=== PATIENT | male | born 1955 | race African-American/Black ===

== ENCOUNTER 2018-01-25 04:26 | Inpatient (IN) | payer OTHER ==
[2018-01-25] VITALS (7 sets, daily range): BP systolic 130–170; BP diastolic 78–100
[~2018-01-25] VITALS: Ht 172.7 cm; Wt 76.2 kg
[2018-01-25] MEDS ORDERED: MORPHINE SULFATE 4 MG/ML CPJ (NOT FOR IM USE) IV STA (04:56)
[2018-01-25] MEDS ORDERED: ONDANSETRON HCL 4MG/2ML INJ IV STA (04:56)
[2018-01-25 05:23] LABS: HEMOGLOBIN. 13.4 g/dL (14.0-18.0); MEAN CORPUSCULAR HEMOGLOBIN 29.7 pg (28.0-32.0); MEAN CORPUSCULAR VOLUME 88.7 fL (80.0-94.0); MEAN PLATELET VOLUME 8.1 fl (7.4-10.4); PLATELET 282 x1000/uL (130-400); RED BLOOD CELL COUNT 4.51 mill/uL (4.7-6.1); RED CELL DISTRIBUTION WIDTH 13.7 % (11.6-14.6)
[2018-01-25 05:27] LABS: CHLORIDE 106 mEq/L (98-107); PROTHROMBIN TIME 9.7 sec (9.1-11.1)
[2018-01-25 05:32] LABS: ETHANOL BLOOD < 10 mg/dL
[2018-01-25 05:34] LABS: LDL CHOLESTEROL 118 mg/dL (5-100)
[2018-01-25 05:36] LABS: CREATINE KINASE 817 IU/L (39-308)
[2018-01-25] MEDS ORDERED: IOHEXOL-350 100 ML BOTTLE ONE (05:52)
[2018-01-25] MEDS ORDERED: SODIUM CHLORIDE 0.9% 1,000 ML IV SCH (06:02)
[2018-01-25 06:39] LABS: CLARITY URINE CLEAR (CLEAR); COLOR URINE YELLOW (YELLOW); KETONES URINE NEGATIVE (NEGATIVE); LEUKOCYTE ESTERASE URINE NEGATIVE (NEGATIVE); NITRITE URINE NEGATIVE (NEGATIVE); OCCULT BLOOD URINE NEGATIVE (NEGATIVE); PROTEIN URINE NEGATIVE (NEGATIVE); SPECIFIC GRAVITY URINE 1.037 (1.005-1.030); UROBILINOGEN URINE 0.2 E.U./dL (0.2-1.0)
[2018-01-25 07:08] LABS: PLATELET ESTIMATE NORMAL
[2018-01-25 07:10] LABS: *AMPHETAMINES SCREEN URINE NEGATIVE (NEGATIVE); *BARBITURATES SCREEN URINE NEGATIVE (NEGATIVE); *BENZODIAZEPINES SCREEN URINE NEGATIVE (NEGATIVE)
[2018-01-25 07:11] LABS: *COCAINE SCREEN URINE NEGATIVE (NEGATIVE); CANNABINOID URINE SCREEN PRESUMTIVE POSITIVE (NEGATIVE); METHADONE URINE SCREEN NEGATIVE (NEGATIVE); OPIATES URINE SCREEN PRESUMTIVE POSITIVE (NEGATIVE); PHENCYCLIDINE URINE SCREEN NEGATIVE (NEGATIVE)
[2018-01-25 08:10] LABS: T4 FREE 0.97 ng/dL (0.76-1.46)
[2018-01-25] MEDS ORDERED: ONDANSETRON HCL 4MG/2ML INJ IV PRN (08:18)
[2018-01-25] MEDS: ASPIRIN 81MG EC TABLET PO SCH (12:30)
[2018-01-25] MEDS: ENOXAPARIN 40MG/0.4ML SYR SUBCUT SCH (13:14)
[2018-01-25] MEDS ORDERED: INFLUENZA VIRUS VACCINE 0.5ML SYR IM ONE (15:15)
[2018-01-25] MEDS ORDERED: PNEUMOCOCCAL 23-VAL P-SAC VAC 0.5 ML IM ONE (15:15)
[2018-01-25 16:45] LABS: CREATINE KINASE 570 IU/L (39-308)
[2018-01-25 16:46] LABS: CREATINE KINASE MB FRACTION 1.3 ng/mL (0.5-3.6)
[2018-01-25] MEDS: ATORVASTATIN CALCIUM 20MG TABLET PO SCH (21:00)
[2018-01-26] VITALS (12 sets, daily range): BP systolic 128–192; BP diastolic 85–114
[2018-01-26 01:07] LABS: CREATINE KINASE 416 IU/L (39-308)
[2018-01-26 01:08] LABS: CREATINE KINASE MB FRACTION 1.1 ng/mL (0.5-3.6)
[2018-01-26 07:04] LABS: CREATINE KINASE 340 IU/L (39-308)
[2018-01-26 07:05] LABS: CREATINE KINASE MB FRACTION < 1.0 ng/mL (0.5-3.6)
[2018-01-26] MEDS: ASPIRIN 81MG EC TABLET PO SCH (08:26)
[2018-01-26] MEDS: ENOXAPARIN 40MG/0.4ML SYR SUBCUT SCH (08:26)
[2018-01-26] MEDS: ATORVASTATIN CALCIUM 20MG TABLET PO SCH (21:17)
[2018-01-27] VITALS (10 sets, daily range): BP systolic 104–163; BP diastolic 67–107
[2018-01-27] MEDS: ENOXAPARIN 40MG/0.4ML SYR SUBCUT SCH (08:44)
[2018-01-27] MEDS: ASPIRIN 81MG EC TABLET PO SCH (08:44)
[2018-01-27 09:49] LABS: BASOPHILS % 0.8 % (0.0-2.0); EOSINOPHILS % 2.4 % (0.0-5.0); HEMATOCRIT. 44.2 % (42.0-52.0); HEMOGLOBIN. 15.1 g/dL (14.0-18.0); LYMPHOCYTES % 23.9 % (20.0-50.0); MEAN CORPUSCULAR HEMOGLOBIN 29.9 pg (28.0-32.0); MEAN CORPUSCULAR VOLUME 87.4 fL (80.0-94.0); MEAN PLATELET VOLUME 7.9 fl (7.4-10.4); MONOCYTES % 14.1 % (2.0-8.0); NEUTROPHILS % 58.8 % (40.0-76.0); PLATELET 377 x1000/uL (130-400); RED BLOOD CELL COUNT 5.05 mill/uL (4.7-6.1); RED CELL DISTRIBUTION WIDTH 13.7 % (11.6-14.6)
[2018-01-27 10:06] LABS: CHLORIDE 103 mEq/L (98-107)
[2018-01-27] MEDS ORDERED: DEXT 5%/0.9% NACL 1,000 ML IV SCH (16:45)
[2018-01-27] MEDS: DEXT 5%/0.9% NACL 1,000 ML IV SCH (17:00)
[2018-01-27] MEDS: ATORVASTATIN CALCIUM 20MG TABLET PO SCH (20:24)
[2018-01-28] VITALS (12 sets, daily range): BP systolic 111–158; BP diastolic 79–117
[2018-01-28] MEDS: ENOXAPARIN 40MG/0.4ML SYR SUBCUT SCH (08:30)
[2018-01-28] MEDS: ASPIRIN 81MG EC TABLET PO SCH (08:30)
[2018-01-28] MEDS: DEXT 5%/0.9% NACL 1,000 ML IV SCH (13:00)
[2018-01-28] MEDS: ATORVASTATIN CALCIUM 20MG TABLET PO SCH (21:20)
[2018-01-29] VITALS (12 sets, daily range): BP systolic 121–160; BP diastolic 55–95
[2018-01-29] MEDS: ASPIRIN 81MG TABLET PO SCH (08:59)
[2018-01-29] MEDS: ENOXAPARIN 40MG/0.4ML SYR SUBCUT SCH (09:07)
[2018-01-29] MEDS: DEXT 5%/0.9% NACL 1,000 ML IV SCH (13:47)
[2018-01-29] MEDS: ATORVASTATIN CALCIUM 20MG TABLET PO SCH (20:19)
[2018-01-30] VITALS (10 sets, daily range): BP systolic 106–153; BP diastolic 70–89
[2018-01-30] MEDS: DEXT 5%/0.9% NACL 1,000 ML IV SCH (05:00)
[2018-01-30] MEDS: ASPIRIN 81MG TABLET PO SCH (08:44)
[2018-01-30] MEDS: ENOXAPARIN 40MG/0.4ML SYR SUBCUT SCH (08:44)
[2018-01-30] MEDS: PANTOPRAZOLE SODIUM 40 MG/VIAL IV SCH ×2 (10:15→20:17)
[2018-01-30] MEDS ORDERED: CEFAZOLIN 1000MG PREMIX 50 ML IV NR (11:00)
[2018-01-30 12:02] LABS: BASOPHILS % 1.3 % (0.0-2.0); EOSINOPHILS % 5.8 % (0.0-5.0); HEMATOCRIT. 45.9 % (42.0-52.0); HEMOGLOBIN. 15.7 g/dL (14.0-18.0); LYMPHOCYTES % 33.9 % (20.0-50.0); MEAN CORPUSCULAR VOLUME 87.8 fL (80.0-94.0); MEAN PLATELET VOLUME 7.7 fl (7.4-10.4); MONOCYTES % 13.1 % (2.0-8.0); NEUTROPHILS % 45.9 % (40.0-76.0); PLATELET 402 x1000/uL (130-400); RED BLOOD CELL COUNT 5.23 mill/uL (4.7-6.1); RED CELL DISTRIBUTION WIDTH 13.3 % (11.6-14.6)
[2018-01-30 12:03] LABS: INR 1.1; PARTIAL THROMBOPLASTIN TIME 27.7 sec (23.4-31.0); PROTHROMBIN TIME 10.9 sec (9.1-11.1)
[2018-01-30 12:49] LABS: CHLORIDE 105 mEq/L (98-107)
[2018-01-30] MEDS ORDERED: SODIUM CHLORIDE 0.9% 10ML VIAL ONE (15:15)
[2018-01-30] MEDS ORDERED: MIDAZOLAM HCL 5 MG/5 ML VIAL IV PRN (17:15)
[2018-01-30] MEDS ORDERED: FENTANYL CITRATE/PF 50MCG/ML 2ML VIAL IV PRN (17:16)
[2018-01-30] MEDS ORDERED: FENTANYL CITRATE/PF 50MCG/ML 2ML VIAL ONE (17:17)
[2018-01-30] MEDS ORDERED: MIDAZOLAM HCL 5 MG/5 ML VIAL ONE (17:17)
[2018-01-30] MEDS: ATORVASTATIN CALCIUM 20MG TABLET PO SCH (20:18)
[2018-01-31] VITALS (10 sets, daily range): BP systolic 119–148; BP diastolic 69–99
[2018-01-31] MEDS: DEXT 5%/0.9% NACL 1,000 ML IV SCH (01:00)
[2018-01-31] MEDS: PANTOPRAZOLE SODIUM 40 MG/VIAL IV SCH (08:15)
[2018-01-31] MEDS ORDERED: BRIM5DRO6 EACHEYE (08:58)
[2018-01-31] MEDS ORDERED: ASPIRIN 81MG TABLET PO SCH (09:45)
[2018-01-31] MEDS ORDERED: MEDICATION NOT ON FORMULARY EA (Brimonidine Tartrate 1 DROP) EACHEYE SCH (09:45)
[2018-01-31] MEDS: BRIMONIDINE 0.2% OPHTH DROPS 5ML EACHEYE SCH ×2 (14:41→21:05)
[2018-01-31] MEDS: ATORVASTATIN CALCIUM 20MG TABLET PO SCH (21:05)
[2018-02-01] VITALS: BP 127/77
[2018-02-01 04:00] VITALS: BP 130/70
[2018-02-01] MEDS: BRIMONIDINE 0.2% OPHTH DROPS 5ML EACHEYE SCH ×3 (05:14→21:24)
[2018-02-01 08:00] VITALS: BP 116/79
[2018-02-01] MEDS: PANTOPRAZOLE SODIUM 40 MG/VIAL IV SCH (09:26)
[2018-02-01] MEDS: ASPIRIN 81MG TABLET PO SCH (09:31)
[2018-02-01 12:00] VITALS: BP 140/88
[2018-02-01 16:00] VITALS: BP 131/90
[2018-02-01 19:58] VITALS: BP 121/82
[2018-02-01] MEDS: ATORVASTATIN CALCIUM 20MG TABLET PO SCH (21:24)
[2018-02-01] MEDS: CHLORPROMAZINE HCL 10 MG TABLET PO PRN (21:56)
[2018-02-02] VITALS (8 sets, daily range): BP systolic 111–131; BP diastolic 79–88
[2018-02-02] MEDS: CHLORPROMAZINE HCL 10 MG TABLET PO PRN ×3 (05:43→21:01)
[2018-02-02] MEDS: BRIMONIDINE 0.2% OPHTH DROPS 5ML EACHEYE SCH ×3 (05:43→21:01)
[2018-02-02] MEDS: PANTOPRAZOLE SODIUM 40 MG/VIAL IV SCH (08:33)
[2018-02-02] MEDS: ASPIRIN 81MG TABLET PO SCH (08:33)
[2018-02-02] MEDS: ATORVASTATIN CALCIUM 20MG TABLET PO SCH (21:01)
[2018-02-02] MEDS: CYCLOBENZAPRINE 10MG TABLET PO SCH (21:01)
[2018-02-03 04:00] VITALS: BP 119/81
[2018-02-03] MEDS: BRIMONIDINE 0.2% OPHTH DROPS 5ML EACHEYE SCH ×3 (05:21→21:11)
[2018-02-03] MEDS: CHLORPROMAZINE HCL 10 MG TABLET PO PRN ×2 (05:21→14:32)
[2018-02-03] MEDS: CYCLOBENZAPRINE 10MG TABLET PO SCH ×3 (05:22→21:10)
[2018-02-03 08:00] VITALS: BP 130/78
[2018-02-03] MEDS: PANTOPRAZOLE SODIUM 40 MG/VIAL IV SCH (10:25)
[2018-02-03] MEDS: ASPIRIN 81MG TABLET PO SCH (10:25)
[2018-02-03 12:00] VITALS: BP 128/78
[2018-02-03 16:00] VITALS: BP 115/77
[2018-02-03 20:00] VITALS: BP 108/84
[2018-02-03] MEDS: CHLORPROMAZINE HCL 10 MG TABLET PO SCH (21:10)
[2018-02-03] MEDS: ATORVASTATIN CALCIUM 20MG TABLET PO SCH (21:10)
[2018-02-04] VITALS: BP 119/78
[2018-02-04] MEDS: CHLORPROMAZINE HCL 10 MG TABLET PO SCH ×4 (03:36→20:10)
[2018-02-04 04:00] VITALS: BP 112/78
[2018-02-04] MEDS: CYCLOBENZAPRINE 10MG TABLET PO SCH ×3 (05:40→20:10)
[2018-02-04] MEDS: BRIMONIDINE 0.2% OPHTH DROPS 5ML EACHEYE SCH ×3 (05:40→20:16)
[2018-02-04 07:20] VITALS: BP 114/76
[2018-02-04] MEDS ORDERED: CYCL10TA7 PO (08:33)
[2018-02-04] MEDS ORDERED: CHLO10TA9 PO (08:33)
[2018-02-04] MEDS ORDERED: BRIM.2 EACHEYE (08:33)
[2018-02-04] MEDS ORDERED: LOV40 SUBCUT (08:33)
[2018-02-04] MEDS ORDERED: PANT40VI IV (08:33)
[2018-02-04] MEDS ORDERED: ASPI-1160 PO (08:33)
[2018-02-04] MEDS ORDERED: ATOR20TA PO (08:33)
[2018-02-04] MEDS ORDERED: BARIUM SULFATE 176 GM SUSP.RECON ONE (09:39)
[2018-02-04] MEDS: PANTOPRAZOLE SODIUM 40 MG/VIAL IV SCH (10:20)
[2018-02-04] MEDS: ASPIRIN 81MG TABLET PO SCH (10:20)
[2018-02-04] MEDS: ENOXAPARIN 40MG/0.4ML SYR SUBCUT SCH (10:26)
[2018-02-04 11:03] VITALS: BP 115/81
[2018-02-04 15:36] VITALS: BP 110/78
[2018-02-04 19:55] VITALS: BP 135/92
[2018-02-04] MEDS: ATORVASTATIN CALCIUM 20MG TABLET PO SCH (20:09)
[2018-02-05] VITALS (7 sets, daily range): BP systolic 105–125; BP diastolic 73–85
[2018-02-05] MEDS: CYCLOBENZAPRINE 10MG TABLET PO SCH ×3 (05:35→21:38)
[2018-02-05] MEDS: CHLORPROMAZINE HCL 25 MG TABLET PO SCH ×3 (05:36→21:38)
[2018-02-05] MEDS: BRIMONIDINE 0.2% OPHTH DROPS 5ML EACHEYE SCH ×3 (05:37→21:38)
[2018-02-05] MEDS: PANTOPRAZOLE SODIUM 40 MG/VIAL IV SCH (08:48)
[2018-02-05] MEDS: ENOXAPARIN 40MG/0.4ML SYR SUBCUT SCH (08:49)
[2018-02-05] MEDS: ASPIRIN 81MG TABLET PO SCH (08:49)
[2018-02-05] MEDS: ATORVASTATIN CALCIUM 20MG TABLET PO SCH (21:38)
[2018-02-06] VITALS: BP 128/81
[2018-02-06 04:00] VITALS: BP 120/84
[2018-02-06] MEDS: CHLORPROMAZINE HCL 25 MG TABLET PO SCH (05:56)
[2018-02-06] MEDS: CYCLOBENZAPRINE 10MG TABLET PO SCH (05:56)
[2018-02-06] MEDS: BRIMONIDINE 0.2% OPHTH DROPS 5ML EACHEYE SCH (05:56)
[2018-02-06 06:57] LABS: BASOPHILS % 0.7 % (0.0-2.0); HEMATOCRIT. 39.4 % (42.0-52.0); HEMOGLOBIN. 13.4 g/dL (14.0-18.0); LYMPHOCYTES % 35.1 % (20.0-50.0); MEAN CORPUSCULAR HEMOGLOBIN 29.8 pg (28.0-32.0); MEAN CORPUSCULAR VOLUME 87.3 fL (80.0-94.0); MEAN PLATELET VOLUME 8.2 fl (7.4-10.4); MONOCYTES % 10.5 % (2.0-8.0); NEUTROPHILS % 44.7 % (40.0-76.0); PLATELET 385 x1000/uL (130-400); RED BLOOD CELL COUNT 4.51 mill/uL (4.7-6.1); RED CELL DISTRIBUTION WIDTH 13.1 % (11.6-14.6)
[2018-02-06 06:58] LABS: CHLORIDE 102 mEq/L (98-107)
[2018-02-06] MEDS: ENOXAPARIN 40MG/0.4ML SYR SUBCUT SCH (08:28)
[2018-02-06] MEDS: PANTOPRAZOLE SODIUM 40 MG/VIAL IV SCH (08:29)
[2018-02-06] MEDS: ASPIRIN 81MG TABLET PO SCH (08:29)
[2018-02-06 11:31] VITALS: BP 99/73
== END 2018-02-06 12:22 | disposition short-term general hospital (02) | DRG 65 ==
LOC: ER 04:26 → 3WST 06:05 → EDBEDREQTM 06:13 → EDBEDREQ 06:13 → ENRESERV 09:35 → 6WST 01-31 15:22 → 6EST 02-05 02:00
PROVIDERS: ADMIT Family Medicine; ATTEND Family Medicine
PROC: 0DH63UZ Insertion of Feeding Device into Stomach, Percutaneous Approach (ICD-10-PCS; principal; 2018-01-30 16:00)
DX: I63.9 Cerebral infarction, unspecified (principal); E87.2 Acidosis; K29.70 Gastritis, unspecified, without bleeding; I11.9 Hypertensive heart disease without heart failure; F12.90 Cannabis use, unspecified, uncomplicated; E78.5 Hyperlipidemia, unspecified; R13.12 Dysphagia, oropharyngeal phase; K31.7 Polyp of stomach and duodenum; R27.0 Ataxia, unspecified; R06.6 Hiccough
CPT/HCPCS: 36415; 70450; 70496; 70551; 71045; 71250; 74176; 74230; 80048; 80053; 80061; 80305; 81003; 82550; 82553; 82962; 83036; 83605; 83721; 83880; 84439; 84443; 84484; 85025; 85379; 85610; 85730; 90686; 90732; 92523; 92610; 92611; 93005; 93306; 93880; 96361; 96374; 96375; 96376; 97112; 97116; 97162; 97166; 97530; 97535; 99291; A4216; C9113; G0482; J0690; J1650; J2250; J2270; J2405; J3010; J7030; J7042; Q0161; Q9967